=== PATIENT | female | born 1960 | race Caucasian/White ===

== ENCOUNTER 2018-07-06 10:55 | Emergency (ER) | payer OTHER ==
--- NOTE | 2018-07-06 13:32 | ER Document Report ---
ED Medical Screen (RME) - General Chief Complaint: Epigastric Pain Stated Complaint: DIFFICULTY BREATHING Time Seen by Provider: 07/06/18 13:22 Notes: Patient is here because she says that she is feeling "horrible" for the past week. She has had chest pains in the front of her chest which are worsened when she swallows any food or liquids. She says that she cannot breathe or eat. Says she has lost 6 pounds in the past week. Went to the emergency room and [place] on Saturday and had labs and x-rays and EKGs and was told that her problem was anxiety and discharged on Xanax. She says she is now lost her voice. Her ears hurt when she swallows. She has a cough but it is nonproductive. History of asthma. Not running any fever. Patient has a history of thyroidectomy, acid reflux, insomnia, depression, and anxiety. Also has muscular dystrophy. TRAVEL OUTSIDE OF THE [place] IN LAST 30 DAYS: No - Related Data Allergies/Adverse Reactions: Sulfa (Sulfonamide Antibiotics) Allergy (Verified 07/06/18 13:07) Past Medical History - Social History Chew tobacco use (# tins/day): No Frequency of alcohol use: Rare Drug Abuse: None - Past Medical History Cardiac Medical History: Denies: Hx Coronary Artery Disease, Hx Heart Attack, Hx Hypertension Pulmonary Medical History: Reports: Hx Asthma, Hx Pneumonia Denies: Hx Bronchitis, Hx COPD Neurological Medical History: Denies: Hx Cerebrovascular Accident, Hx Seizures Renal/ Medical History: Denies: Hx Peritoneal Dialysis Musculoskeltal Medical History: Denies Hx Arthritis Past Surgical History: Reports: Hx Abdominal Surgery - gastric bypass, Hx Appendectomy, Hx Section, Hx Hysterectomy, Hx Mastectomy - with reconstruction, Hx Tonsillectomy - Immunizations Hx Diphtheria, Pertussis, Tetanus Vaccination: Yes Physical Exam - Vital signs Vitals: Temp Pulse Resp BP Pulse Ox 97.6 F 99 14 100/68 100 07/06/18 11:29 07/06/18 11:29 07/06/18 11:07/06/18 11:07/06/18 11:29 Course - Vital Signs Vital signs: Temp Pulse Resp BP Pulse Ox 97.6 F 99 14 100/68 100 07/06/18 11:29 07/06/18 11:29 07/06/18 11:29 07/06/18 11:29 07/06/18 11:29 Doctor's Discharge - Discharge Referrals: HODA KUMAR JR, MD [Primary Care Provider] - Follow up as needed
--- NOTE | 2018-07-06 14:08 | RADIOLOGY REPORT (SQ) ---
EXAM DESCRIPTION: CHEST 2 VIEWS COMPLETED DATE/TIME: 07/06/2018 1:59 pm REASON FOR STUDY: Cough and chest pain COMPARISON: None. EXAM PARAMETERS: NUMBER OF VIEWS: two views TECHNIQUE: Digital Frontal and Lateral radiographic views of the chest acquired. RADIATION DOSE: NA LIMITATIONS: none FINDINGS: LUNGS AND PLEURA: No opacities, masses or pneumothorax. No pleural effusion. MEDIASTINUM AND HILAR STRUCTURES: No masses or contour abnormalities. HEART AND VASCULAR STRUCTURES: Heart normal size. No evidence for failure. BONES: Osteopenic. Old right humerus intramedullary nail. HARDWARE: Surgical clips right breast OTHER: No other significant finding. IMPRESSION: NO ACUTE RADIOGRAPHIC FINDING IN THE CHEST. TECHNICAL DOCUMENTATION: JOB ID: [id number] [employer]- All Rights Reserved Reading location - IP/workstation name: [email or web address]
[2018-07-06 14:29] LABS: APPEARANCE,URINE SLIGHTLY-CLOUDY; BILIRUBIN,URINE SMALL (NEGATIVE); COLOR,URINE AMBER; GLUCOSE, URINE NEGATIVE (NEGATIVE); KETONES,URINE 80 mg/dL (NEGATIVE); LEUKOCYTE ESTERASE,URINE NEGATIVE (NEGATIVE); NITRITE,URINE NEGATIVE (NEGATIVE); PROTEIN,URINE 100 mg/dL (NEGATIVE); URINE SPECIFIC GRAVITY 1.033
[2018-07-06 14:30] LABS: ABSOLUTE BASOPHILS # (AUTO) 0.1 10^3/uL (0.0-0.2); ABSOLUTE LYMPHOCYTES (AUTO) 1.8 10^3/uL (0.5-4.7); ABSOLUTE MONOCYTES (AUTO) 0.8 10^3/uL (0.1-1.4); ABSOLUTE NEUT (AUTO) 5.9 10^3/uL (1.7-8.2); BASOPHILS % (AUTO) 1.3 % (0-2); EOSINOPHILS % (AUTO) 0.1 % (0-6); HEMATOCRIT 48.3 % (36.0-47.0); HEMOGLOBIN 16.6 g/dL (12.0-15.5); LYMPHOCYTES % (AUTO) 20.8 % (13-45); MEAN CORPUSCULAR HEMOGLOBIN 32.1 pg (27.0-33.4); MEAN CORPUSCULAR HGB CONC 34.3 g/dL (32.0-36.0); MEAN CORPUSCULAR VOLUME 93 fl (80-97); MONOCYTES % (AUTO) 8.8 % (3-13); PLATELET COUNT 387 10^3/uL (150-450); RED BLOOD COUNT 5.17 10^6/uL (3.72-5.28); RED CELL DISTRIBUTION WIDTH 14.6 % (11.5-14.0); TOTAL CELLS COUNTED % (AUTO) 100 %; WHITE BLOOD COUNT 8.6 10^3/uL (4.0-10.5)
--- NOTE | 2018-07-06 14:32 | EKG REPORT ---
SEVERITY:- NORMAL ECG - SINUS RHYTHM : Confirmed by: Kandace Hernandez MD 06-Jul-2018 14:31:38
[2018-07-06 14:47] LABS: ALANINE AMINOTRANSFERASE 27 U/L (9-52); ALKALINE PHOSPHATASE 109 U/L (38-126); ASPARTATE AMINO TRANSFERASE 23 U/L (14-36); BILIRUBIN,DIRECT 0.7 mg/dL (0.0-0.4); BILIRUBIN,TOTAL 0.7 mg/dL (0.2-1.3); BLOOD UREA NITROGEN 18 mg/dL (7-20); CALCIUM 10.1 mg/dL (8.4-10.2); CHLORIDE 112 mmol/L (98-107); CREATINE KINASE 211 U/L (30-135); GLUCOSE 102 mg/dL (75-110); LIPASE 220.4 U/L (23-300); POTASSIUM 4.1 mmol/L (3.6-5.0); TOTAL PROTEIN 8.5 g/dL (6.3-8.2)
[2018-07-06 14:52] LABS: CARBON DIOXIDE 16 mmol/L (22-30); SODIUM 148.4 mmol/L (137-145)
[2018-07-06 14:53] LABS: ANION GAP 20 (5-19)
[2018-07-06 14:56] LABS: CREATINE KINASE MB 2.18 ng/mL (<4.55)
[2018-07-06 15:01] LABS: TROPONIN I < 0.012 ng/mL
[2018-07-06] MEDS ORDERED: PANTOPRAZOLE SODIUM 40 MG VIAL IV ONE (16:44)
[2018-07-06] MEDS ORDERED: NORMAL SALINE 1000 ML 1,000 ML IV ONE (16:44)
[2018-07-06] MEDS ORDERED: MAG HYDROX/AL HYDROX/SIMETH SUSP 30 ML UDCUP PO ONE (16:45)
[2018-07-06] MEDS ORDERED: METOCLOPRAMIDE HCL ORAL SOLN 10 MG/10 ML UDCUP PO ONE (16:45)
[2018-07-06] MEDS ORDERED: LIDOCAINE 2% VISCOUS SOLN 20 ML UDCUP PO ONE (16:45)
[2018-07-06] MEDS ORDERED: METOCLOPRAMIDE HCL INJ/PF 10 MG/2 ML SDV IV ONE (16:59)
[2018-07-06] MEDS ORDERED: DIPHENHYDRAMINE HCL 50 MG/ML VIAL IV ONE (16:59)
--- NOTE | 2018-07-06 17:05 | ER Document Report ---
ED General - General Chief Complaint: Epigastric Pain Stated Complaint: DIFFICULTY BREATHING Time Seen by Provider: 07/06/18 13:22 Mode of Arrival: Ambulatory Information source: Patient Notes: 58-year-old female with a history of muscular dystrophy and severe GERD who presents to the emergency room with discomfort in her chest whenever she swallows food or even liquid. The food will go down it is just that it causes significant discomfort. She does not have any chest pain when she is not eating. She does report having muscular dystrophy and she gets cramping in the upper extremities as well as the upper portion of the lower extremities. She denies any fever, chills. She does report nausea without vomiting. She denies any shortness of breath. TRAVEL OUTSIDE OF THE [place] IN LAST 30 DAYS: No - HPI Onset: Last week Onset/Duration: Gradual Quality of pain: Dull Severity: Moderate Pain Level: 2 Associated symptoms: Nausea. denies: Nonproductive cough, Fever, Shortness of breath Exacerbated by: Other - Swallowing Relieved by: Denies Similar symptoms previously: Yes Recently seen / treated by doctor: Yes - Related Data Allergies/Adverse Reactions: Sulfa (Sulfonamide Antibiotics) Allergy (Verified 07/06/18 13:07) Past Medical History - General Information source: Patient - Social History Smoking Status: Never Smoker Cigarette use (# per day): No Chew tobacco use (# tins/day): No Frequency of alcohol use: Rare Drug Abuse: None Lives with: Spouse/Significant other Family History: None Patient has suicidal ideation: No Patient has homicidal ideation: No - Past Medical History Cardiac Medical History: Denies: Hx Coronary Artery Disease, Hx Heart Attack, Hx Hypertension Pulmonary Medical History: Reports: Hx Asthma, Hx Pneumonia Denies: Hx Bronchitis, Hx COPD Neurological Medical History: Denies: Hx Cerebrovascular Accident, Hx Seizures Renal/ Medical History: Denies: Hx Peritoneal Dialysis Musculoskeletal Medical History: Denies Hx Arthritis Past Surgical History: Reports: Hx Abdominal Surgery - gastric bypass, Hx Appendectomy, Hx Section, Hx Hysterectomy, Hx Mastectomy - with reconstruction, Hx Tonsillectomy - Immunizations Hx Diphtheria, Pertussis, Tetanus Vaccination: Yes Hx Pneumococcal Vaccination: 10/18/09 Review of Systems - Review of Systems Constitutional: denies: Chills, Fever EENT: No symptoms reported Cardiovascular: No symptoms reported Respiratory: No symptoms reported Gastrointestinal: See HPI Genitourinary: No symptoms reported Female Genitourinary: No symptoms reported Musculoskeletal: No symptoms reported Skin: No symptoms reported Hematologic/Lymphatic: No symptoms reported Neurological/Psychological: No symptoms reported Physical Exam - Vital signs Vitals: Temp Pulse Resp BP Pulse Ox 97.6 F 99 14 100/68 100 07/06/18 11:29 07/06/18 11:29 07/06/18 11:29 07/06/18 11:29 07/06/18 11:29 Notes: Physical exam: GENERAL: The 8-year-old female, alert and oriented 3, stable vital signs, oxygen saturation 100% on room air. She is in no distress. HEAD: Atraumatic, normocephalic. EYES: Pupils equal round and reactive to light, extraocular movements intact, sclera anicteric, conjunctiva are normal. ENT: TMs normal, nares patent, oropharynx clear without exudates. Moist mucous membranes. NECK: Normal range of motion, supple without obvious mass or JVD. LUNGS: Breath sounds clear to auscultation bilaterally and equal. No wheezes rales or rhonchi. HEART: Regular rate and rhythm without murmurs, rubs or gallops. ABDOMEN: Soft, normoactive bowel sounds. No tenderness to palpation. No guarding, no rebound. No masses appreciated. EXTREMITIES: Normal range of motion, no pitting or edema. No clubbing or cyanosis. NEUROLOGICAL: Cranial nerves II through XII grossly intact. Normal speech, moving all extremities. PSYCH: Normal mood, normal affect. SKIN: Warm, Dry, normal turgor, no rashes or lesions noted. Course - Vital Signs Vital signs: Temp Pulse Resp BP Pulse Ox 97.6 F 88 16 100/65 98 07/06/18 11:29 07/06/18 19:13 07/06/18 19:13 07/06/18 19:13 07/06/18 19:13 - Laboratory Result Diagrams: 07/06/18 13:39 07/06/18 13:39 Laboratory results interpreted by me: 07/06/18 07/06/18 07/06/18 13:39 13:39 13:39 Hgb 16.6 H Hct 48.3 H RDW 14.6 H Sodium 148.4 H Chloride 112 H Carbon Dioxide 16 L Anion Gap 20 H Direct Bilirubin 0.7 H Creatine Kinase 211 H Total Protein 8.5 H Urine Protein 100 H Urine Ketones 80 H Urine Bilirubin SMALL H Urine Urobilinogen 4.0 H - Diagnostic Test Radiology reviewed: Image reviewed, Reports reviewed - EKG Interpretation by Me Rate: Normal Rhythm: NSR - EKG shows normal sinus rhythm with a ventricular rate of 99, no acute ST-T wave changes Discharge - Discharge Clinical Impression: Esophageal spasm and reflux, Dehydration Condition: Stable Disposition: HOME, SELF-CARE Additional Instructions: As we discussed, your chest x-ray looked clear. Your EKG was normal. Your labs were relatively stable. Recommendations: Drink fluids often and advance diet slowly as tolerated. Try the Reglan for nausea it also helps with motility. Continue your GI medicines. I would follow-up with Dr. Dillard of GI. Return to the emergency room for worsening shortness of breath, chest pain or any concerns or getting worse. Follow up with your primary care doctor and bring a copy of today's labs with you when you go. Prescriptions: Metoclopramide HCl [Reglan 10 mg Tablet] 1 - 2 tab PO ASDIR PRN #25 tablet PRN Reason: Referrals: HODA KUMAR JR, MD [Primary Care Provider] - Follow up as needed
[2018-07-06 19:34] VITALS: BP 100/65
== END 2018-07-06 19:36 | disposition home or self-care (01) ==
LOC: ER 10:55
DX: K21.9 Gastro-esophageal reflux disease without esophagitis (principal); K22.4 Dyskinesia of esophagus; E86.0 Dehydration; G71.0 Muscular dystrophy; R11.0 Nausea; J45.909 Unspecified asthma, uncomplicated; Z88.2 Allergy status to sulfonamides; Z98.84 Bariatric surgery status
CPT/HCPCS: 93005; 99284; 96374; 96375; 36415; 82553; 82550; 83690; 85025; 80053; 81001; 84484; 71046; 93010; J1200; J3490; J2765; S0164; 96361